=== PATIENT | female | born 1995 | race Caucasian/White ===

== ENCOUNTER 2020-02-13 20:30 | Emergency (ER) | payer OTHER ==
[2020-02-13] MEDS ORDERED: ACETAMINOPHEN 325 MG TABLET PO ONE (20:45)
--- NOTE | 2020-02-13 20:54 | ER Document Report ---
ED Extremity Problem, Lower - General Chief Complaint: Knee Injury Stated Complaint: FALL/KNEE PAIN 37WKS PREG Time Seen by Provider: 02/13/20 20:38 Primary Care Provider: TANIA GOULD DO [Primary Care Provider] - Follow up as needed Mode of Arrival: Wheelchair Information source: Patient Notes: 24-year-old female presented to ED for complaint in her left knee. She states around 1930 she was pushing an ottoman up to the couch when her left knee locked up. She states she then fell landing on her knee and now her knee is sore. She states her abdomen is feeling very tight more so than normal and she is 37 weeks 4 days . She states that she was seen last week and her amniotic fluid was 15 and 3 days ago her amniotic fluid was up to 26 in 1 week's time. She states she did go in today for nonstress test at 830 this morning but her abdomen feels much tighter now than then. She is supposed to get seen again next week. Patient is able to walk with some discomfort to the left knee. She has full range of motion to the knee she does have some mild tenderness to the medial side of the left knee. There is no laxity to the joint. There is no eff usion to the joint. Constitutional: Negative for fever. HENT: Negative for sore throat. Eyes: Negative for visual changes. Cardiovascular: Negative for chest pain. Respiratory: Negative for shortness of breath. Gastrointestinal: Negative for abdominal pain, vomiting or diarrhea. Genitourinary: Negative for dysuria. Musculoskeletal: Negative for back pain. Skin: Negative for rash. Neurological: Negative for headaches, weakness or numbness. 10 point ROS negative except as marked above and in HPI. PHYSICAL EXAMINATION: GENERAL: 37 weeks 4 days gestation . She states her abdomen is feeling very tight. After examining the knee apply an Brayan wrap and given her Tylenol we are sending her up to labor and delivery to have a labor check.. HEAD: Atraumatic, normocephalic. EYES: Pupils equal round extraocular movements intact, conjunctiva are normal. ENT: Nares patent NECK: Normal range of motion LUNGS: No respiratory distress Musculoskeletal: Normal range of motion tenderness to the medial aspect of the left knee. Has full range of motion is able to walk NEUROLOGICAL: Normal speech, normal gait. PSYCH: Normal mood, normal affect. SKIN: Warm, Dry, normal turgor, no rashes or lesions noted. - HPI Patient complains to provider of: Injury, Pain Location: Knee Occurred: This evening - 1929 Where: Neighbor's Onset/Duration: Better Quality of pain: Other - Sore left knee, her abdomen is much tighter than it normal. Severity: Moderate Pain Level: 2 Context: Fell Recent injury: Possibly Associated symptoms: Painful ambulation Exacerbated by: Walking - Related Data Allergies/Adverse Reactions: cefaclor [From Ceclor] Allergy (Verified 02/13/20 20:37) Past Medical History - General Information source: Patient - Social History Smoking Status: Never Smoker Frequency of alcohol use: None Drug Abuse: None Lives with: Family Family History: Reviewed & Not Pertinent Patient has suicidal ideation: No Patient has homicidal ideation: No - Past Medical History Cardiac Medical History: Reports: None Pulmonary Medical History: Reports: None EENT Medical History: Reports: None Neurological Medical History: Reports: None Endocrine Medical History: Reports: None Renal/ Medical History: Reports: None Malignancy Medical History: Reports: None GI Medical History: Reports: None Musculoskeletal Medical History: Reports Hx Musculoskeletal Trauma - Dislocated right kneecap fractured right clavicle Skin Medical History: Reports None Psychiatric Medical History: Reports: None Traumatic Medical History: Reports: Hx Fractures - Clavicle fracture Infectious Medical History: Reports: None Surgical Hx: Negative Past Surgical History: Reports: None - Immunizations Immunizations up to date: Yes Hx Diphtheria, Pertussis, Tetanus Vaccination: Yes Physical Exam - Vital signs Vitals: Temp Pulse Resp BP Pulse Ox 97.7 F 99 21 H 121/86 H 99 02/13/20 20:52 02/13/20 20:52 02/13/20 20:52 02/13/20 20:52 02/13/20 20:52 Course - Vital Signs Vital signs: Temp Pulse Resp BP Pulse Ox 97.7 F 99 21 H 121/86 H 99 02/13/20 20:52 02/13/20 20:52 02/13/20 20:52 02/13/20 20:52 02/13/20 20:52 Procedures - Immobilization Left Time completed: 20:50 Pre-Proc Neuro Vasc Exam: Normal Immobilizer type: Brayan wrap Performed by: PCT Post-Proc Neuro Vasc Exam: Normal Alignment checked and good: Yes Discharge - Discharge Clinical Impression: 37 weeks preg abdomen tight Fall Qualifiers: Encounter type: initial encounter Qualified Code(s): W19.XXXA - Unspecified fall, initial encounter Left knee pain Qualifiers: Chronicity: acute Qualified Code(s): M25.562 - Pain in left knee Condition: Stable Disposition: HOME, SELF-CARE Additional Instructions: You were seen today for pain in your left knee. You state you were pushing her arm into the couch this evening when your left knee locked up and then you fell and your left knee is sore. States she also or 37 weeks and 4 days and your abdomen is feeling much tighter than it normally feels. He states she was seen a week ago and your amniotic fluid was at 15 and 3 days ago it was at 26 in 1 week. He states he did go this morning for a nonstress test at the [facility] at 830 this morning and everything was okay but her abdomen is feeling different now than it was. He states you are feel the baby move. Acetaminophen Acetaminophen may be taken for pain relief or fever control. It's much safer than aspirin, offering a wider range of "safe" dosages. It is safe during . Some brand names are Tylenol, Panadol, Datril, Anacin 3, Tempra, and Liquiprin. Acetaminophen can be repeated every four hours. The following are maximum recommended dosages: WEIGHT Dose Drops Elixir Chewable(80mg) (LBS.) drprs=droppers tsp=teaspoon 6 40 mg .4 ml (1/2) 6-11 80 mg .8 ml (full) 1/2 tsp 1 tab 12-16 120 mg 1 1/2 drprs 3/4 tsp 1 1/2 tabs 17-23 160 mg 2 drprs 1 tsp 2 tabs 24-30 240 mg 3 drprs 1 1/2 tsp 3 tabs 30-35 320 mg 2 tsp 4 tabs 36-41 360 mg 2 1/4 tsp 4 1/2 tabs 42-47 400 mg 2 1/2 tsp 5 tabs 48-53 480 mg 3 tsp 6 tabs 54-59 520 mg 3 1/4 tsp 6 1/2 tabs 60-64 560 mg 3 1/2 tsp 7 tabs 65-70 600 mg 3 3/4 tsp 7 1/2 tabs 71-76 640 mg 4 tsp 8 tabs 77-82 720 mg 4 1/2 tsp 9 tabs 83-88 800 mg 5 tsp 10 tabs >89 pounds or adults 650 mg to 900 mg Acetaminophen can be repeated every four hours. Maximum daily dose not to exceed 4000 mg. These maximum recommended dosages are slightly higher than the dosages written on the product container, but these dosages are very safe and well below the toxic dosage for acetaminophen. Brayan Wrap A compression dressing (brayan wrap) has been placed. This helps hold the area still. It limits swelling and internal bleeding. The wrap should be comfortably snug -- not tight. You should feel a sense of pressure, but not severe pain under the wrap. Unless the physician tells you otherwise, you can adjust the wrap for comfort. If the wrap causes symptoms suggesting it's too tight -- uncomfortable pressure, swelling or discoloration beyond the wrap, numbness, or severe pain -- you must loosen the wrap. If these symptoms don't resolve promptly, return for re-evaluation. FOLLOW-UP CARE: If you have been referred to a physician for follow-up care, call the physicians office for an appointment as you were instructed or within the next two days. If you experience worsening or a significant change in your symptoms, notify the physician immediately or return to the Emergency Department at any time for re-evaluation. We will treat you with an Brayan wrap and Tylenol for the knee pain and then you are going straight up to labor and delivery to have a labor check for this tight feeling in your abdomen after falling. Referrals: TANIA GOULD, DO [Primary Care Provider] - Follow up as needed
[2020-02-13 21:02] VITALS: BP 121/86
== END 2020-02-13 21:01 | disposition home or self-care (01) ==
LOC: ER 20:30
DX: O26.893 Other specified pregnancy related conditions, third trimester (principal); M25.562 Pain in left knee; W18.30XA Fall on same level, unspecified, initial encounter; Y92.009 Unspecified place in unspecified non-institutional (private) residence as the place of occurrence of the external cause; Z3A.37 37 weeks gestation of pregnancy
CPT/HCPCS: 99283

== ENCOUNTER 2020-02-13 21:09 | Outpatient (CLI) | payer OTHER ==
[2020-02-13 22:37] LABS: APPEARANCE,URINE CLEAR; BILIRUBIN,URINE NEGATIVE (NEGATIVE); COLOR,URINE STRAW; GLUCOSE, URINE NEGATIVE (NEGATIVE); KETONES,URINE NEGATIVE (NEGATIVE); LEUKOCYTE ESTERASE,URINE NEGATIVE (NEGATIVE); NITRITE,URINE NEGATIVE (NEGATIVE); PROTEIN,URINE NEGATIVE (NEGATIVE); URINE SPECIFIC GRAVITY 1.004; UROBILINOGEN,URINE NEGATIVE mg/dL (<2.0)
[2020-02-13 22:58] LABS: URINE AMPHETAMINES SCREEN NEGATIVE; URINE BARBITURATES SCREEN NEGATIVE; URINE BENZODIAZEPINES SCREEN NEGATIVE; URINE COCAINE SCREEN NEGATIVE; URINE MARIJUANA (THC) SCREEN NEGATIVE; URINE METHADONE SCREEN NEGATIVE; URINE PHENCYCLIDINE SCREEN NEGATIVE
[2020-02-13 23:29] LABS: FIBRINOGEN 459 mg/dL (209-497); INTERNATIONAL RATION (INR) 0.93; PARTIAL THROMBOPLASTIN TIME 26.1 SEC (23.5-35.8); PROTHROMBIN TIME 12.7 SEC (11.4-15.4)
[2020-02-13 23:38] LABS: ABSOLUTE EOSINOPHILS # (AUTO) 0.2 10^3/uL (0.0-0.6); ABSOLUTE LYMPHOCYTES (AUTO) 1.9 10^3/uL (0.5-4.7); ABSOLUTE MONOCYTES (AUTO) 0.7 10^3/uL (0.1-1.4); ABSOLUTE NEUT (AUTO) 6.1 10^3/uL (1.7-8.2); BASOPHILS % (AUTO) 0.2 % (0-2); EOSINOPHILS % (AUTO) 2.2 % (0-6); HEMATOCRIT 30.6 % (36.0-47.0); HEMOGLOBIN 10.6 g/dL (12.0-15.5); LYMPHOCYTES % (AUTO) 21.4 % (13-45); MEAN CORPUSCULAR HEMOGLOBIN 28.2 pg (27.0-33.4); MEAN CORPUSCULAR HGB CONC 34.6 g/dL (32.0-36.0); MEAN CORPUSCULAR VOLUME 82 fl (80-97); MONOCYTES % (AUTO) 7.4 % (3-13); PLATELET COUNT 144 10^3/uL (150-450); RED BLOOD COUNT 3.75 10^6/uL (3.72-5.28); RED CELL DISTRIBUTION WIDTH 14.1 % (11.5-14.0); SEGMENTED NEUTROPHILS % (AUTO) 68.8 % (42-78); TOTAL CELLS COUNTED % (AUTO) 100 %; WHITE BLOOD COUNT 8.9 10^3/uL (4.0-10.5)
--- NOTE | 2020-02-13 23:44 | RADIOLOGY REPORT (SQ) ---
EXAM DESCRIPTION: US LIMITED COMPLETED DATE/TME: 02/13/2020 00:00 CLINICAL HISTORY: 24 years, Female, fall. r/o abruption and assure wellbeing COMPARISON: None. TECHNIQUE: LIMITATIONS: None. FINDINGS: There is a live IUP in vertex presentation. cardiac activity was measured at 133 bpm. The placenta is posterior in location, with no evidence of abruption or previa. The amniotic fluid index is 25 cm, at the upper limits of normal. The cervix measures 3.2 cm in length and is closed. IMPRESSION: Unremarkable IUP. copyright 2010 [facility] [employer]- All Rights Reserved
[2020-02-14 03:07] LABS: RHOGAM DOSE INDICATED 0 VIAL(S)
== END 2020-02-13 23:58 | disposition home or self-care (01) ==
LOC: LC 21:09
PROVIDERS: ATTEND Student in an Organized Health Care Education/Training Program
DX: O47.1 False labor at or after 37 completed weeks of gestation (principal); Z3A.37 37 weeks gestation of pregnancy; Z88.1 Allergy status to other antibiotic agents; Z91.81 History of falling
CPT/HCPCS: 36415; 59025; 76815; 80307; 81005; 85025; 85384; 85460; 85610; 85730; 86900; 86901

== ENCOUNTER 2020-02-25 08:33 | Inpatient (IN) | payer OTHER ==
[2020-02-25] MEDS ORDERED: OXYTOCIN/0.9 % SODIUM CHLORIDE 30 UNIT/500 ML RTUINJ IV PRN ×2 (08:55→15:37)
[2020-02-25] MEDS ORDERED: RINGERS SOLUTION,LACTATED 1,000 ML IV ONE (08:55)
[2020-02-25] MEDS ORDERED: OXYTOCIN 10 UNIT/ML VIAL ONE (09:13)
[2020-02-25] MEDS ORDERED: LIDOCAINE 1% INJ-PF (10 MG/ML) 30 ML SDV ONE (09:13)
[2020-02-25] MEDS ORDERED: OXYTOCIN/0.9 % SODIUM CHLORIDE 30 UNIT/500 ML RTUINJ ONE (09:13)
[2020-02-25] MEDS ORDERED: MISOPROSTOL 0.2 MG TABLET ONE (09:13)
[2020-02-25 09:15] LABS: ABSOLUTE EOSINOPHILS # (AUTO) 0.2 10^3/uL (0.0-0.6); ABSOLUTE LYMPHOCYTES (AUTO) 1.7 10^3/uL (0.5-4.7); ABSOLUTE MONOCYTES (AUTO) 0.5 10^3/uL (0.1-1.4); ABSOLUTE NEUT (AUTO) 4.8 10^3/uL (1.7-8.2); BASOPHILS % (AUTO) 0.4 % (0-2); EOSINOPHILS % (AUTO) 2.6 % (0-6); HEMATOCRIT 31.9 % (36.0-47.0); LYMPHOCYTES % (AUTO) 23.5 % (13-45); MEAN CORPUSCULAR HEMOGLOBIN 27.6 pg (27.0-33.4); MEAN CORPUSCULAR HGB CONC 34.6 g/dL (32.0-36.0); MEAN CORPUSCULAR VOLUME 80 fl (80-97); MONOCYTES % (AUTO) 7.4 % (3-13); PLATELET COUNT 117 10^3/uL (150-450); RED CELL DISTRIBUTION WIDTH 14.2 % (11.5-14.0); SEGMENTED NEUTROPHILS % (AUTO) 66.1 % (42-78); TOTAL CELLS COUNTED % (AUTO) 100 %; WHITE BLOOD COUNT 7.3 10^3/uL (4.0-10.5)
[2020-02-25] MEDS: RINGERS SOLUTION,LACTATED 1,000 ML IV PRN ×2 (09:19→11:52)
[2020-02-25 10:09] LABS: URINE AMPHETAMINES SCREEN NEGATIVE; URINE BARBITURATES SCREEN NEGATIVE; URINE BENZODIAZEPINES SCREEN NEGATIVE; URINE COCAINE SCREEN NEGATIVE; URINE MARIJUANA (THC) SCREEN NEGATIVE; URINE METHADONE SCREEN NEGATIVE; URINE PHENCYCLIDINE SCREEN NEGATIVE
[2020-02-25] MEDS ORDERED: ACETAMINOPHEN 325 MG TABLET ONE (10:16)
[2020-02-25] MEDS ORDERED: ACETAMINOPHEN 325 MG TABLET PO PRN ×2 (10:17→15:37)
--- NOTE | 2020-02-25 10:17 | Admission Physical ---
Datetime Report Generated by CPN: 02/25/2020 10:17 CURRENT ADMISSION Hx Assessment: The History has been Updated Chief Complaint: Scheduled Induction of Labor Indication for Induction: Polyhydramnios Admit Impression : Term, Intrauterine Admit Plan: Admit to Unit; Initiate Labor Induction Protocol ALLERGIES Medication Allergies: No Medication Allergies: cefaclor (02/25/2020) Latex: No Latex Allergies OBSTETRICAL HISTORY EDC: 03/02/2020 00:00 : 4 Para: 2 Term: 2 : 0 SAB: 1 IAB: 0 Ectopic: 0 Livin Cesareans: 0 VBACs: 0 Multiple Births: 0 Gestational Diabetes: No Rh Sensitization: No Incompetent Cervix: No BETTINA: No Infertility: No ART Treatment: No Uterine Anomaly: No IUGR: No Hx Previous C/S: No Macrosomia: No Hx Loss/Stillborn: No PIH: Yes Hx : No Placenta Previa/Abruption: No Depression/PP Depression: No PTL/PROM: No Post Hemorrhage: No Current Procedures: Ultrasound; NST Obstetrical History Comments: g1 05/2015 SAB g2 - 08/20/16 38 weeks IOL GHTN g3 - 12/29/2018 40 weeks g4 - current +downs in 1st trimester, Neg NIPS at [facility], poly FRANCISCO J 27.93 SEE RECORDS Alcohol: No Marijuana : No Cocaine: No Other Illicit Drugs: No Cigarettes: Never Smoker. [id number] MEDICAL HISTORY Diabetes: No Blood Transfusion: No Pulmonary Disease (Asthma, TB): No Breast Disease: No Hypertension: No Manager Gaming Surgery: No Heart Disease: No Hosp/Surgery: Yes Autoimmune Disorder: No Anesthetic Complications: No Kidney Disease: No Abnormal Pap Smear: No Neuro/Epilepsy: No Psychiatric Disorders: No Other Medical Diseases: No Hepatitis/Liver Disease: No Significant Family History: No Varicosities/Phlebitis: No Trauma/Violence : No Thyroid Dysfunction: No Medical History Comments: childbirth INFECTIOUS HISTORY Gonorrhea: No Genital Herpes: No Chlamydia: No Tuberculosis: No Syphilis: No Hepatitis: No HIV/AIDS Exposure: No Rash or Viral Illness: No HPV: No PHYSICAL EXAM General: Normal Heart: Normal Abdomen: Normal Extremities: Normal DTRs: Normal Pelvic Type: Adequate Physical Exam Comments: pelvis proven to 7lbs Vital Signs: Reviewed; Within Normal Limits VAGINAL EXAM Dilatation: 3 Effacement: 60 Station: -1 Contraction Comments: irregular MEMBRANES Membranes: Intact FETUS A EGA: 39.1 Monitoring: External US FHR Category: Category I Presentation: Vertex Admit Comment: 24yo at 39wga into L_D for IOL secondary to polyhydramnios. Pt is A pos, Rubella non-immune, GBS negative. also complicated by anemia and positive down syndrome screen with negative maternity. Plan is pitocin and AROM with FSE. Dr dwyer is the OB continuing education director today and aware of pt status at this time PLANS FOR LABOR AND DELIVERY Labor and Delivery: None Pain Management: Epidural Feeding Preference: Formula Benefit of Breast Feed Discussed: Yes Circumcision: Yes INFORMED CONSENT Assignment: Diamond Dwyer MD Signature: with User ID: [email or web address] : with User ID: [email or web address]
[2020-02-25] MEDS ORDERED: ROPIVACAINE HCL 0.2% INJ/PF (2 MG/ML) 20 ML SDV ONE (11:45)
[2020-02-25] MEDS ORDERED: FENTANYL/BUPIVACAINE/NS/PF 300 MCG/150 ML RTUINJ EPI ONE (11:45)
[2020-02-25] MEDS ORDERED: EPHEDRINE SULFATE INJ 50 MG/1 ML AMPULE ONE (11:45)
--- NOTE | 2020-02-25 12:55 | L&D Progress Notes ---
PROGRESS NOTES Datetime Report Generated by CPN: 02/25/2020 12:54 PROGRESS NOTE Impression Other: IUP @ 39w1d- IOL Procedures: Artificial ROM; Sterile Vag Exam Plan: Continue Present Management; Induction Informed Consent Obtained: Vaginal Delivery; Induction of Labor; Risks, Benefits and Alternatives Discussed Vital Signs : Reviewed Comment: S: comfortable, feeling some pressure with contractions but no pain, desires an epidural for pain relief at some point O:VSS, cat I tracing, pit @ 6mu/min, cervix and contractions as stated A: IUP @ 39w1d IOL secondary to polyhydramnious AROM- Large amount of clear fluid, tolerated well by both baby and patient P: continue present plan with pitocin, anticipate delivery, epidural prn VAGINAL EXAM Dilatation: 3 Effacement: 60 Station: -1 Contractions: 2-4 LAST VAGINAL EXAM-NURSING Nursing Exam Dilitation: 4.0 Nursing Exam Effacement: 80 Nursing Exam Station: 0 MEMBRANES Membranes: Ruptured Amniotic Fluid Color: Clear FETUS A Monitoring: External US Decelerations: None FHR Category: Category I Presentation: Vertex SIGNATURE SIGNATURE: [id number];[id number];13,[id number] Assignment: Diamond Dwyer MD Signature: with User ID: [email or web address] : with User ID: [email or web address]
[2020-02-25] MEDS ORDERED: PROMETHAZINE HCL 25 MG SUPP.RECT PR PRN (15:37)
[2020-02-25] MEDS ORDERED: BENZOCAINE/MENTHOL AEROSOL SPRAY 56 ML TOP PRN (15:37)
[2020-02-25] MEDS ORDERED: MEASLES,MUMPS&RUBELLA VACC/PF 0.5 ML VIAL SUBCUT PRN (15:37)
[2020-02-25] MEDS ORDERED: PROMETHAZINE HCL INJ 25 MG/1 ML VIAL IV PRN (15:37)
[2020-02-25] MEDS ORDERED: GLYCERIN/WITCH HAZEL LEAF 1 EACH MED..WIPE TP PRN (15:37)
[2020-02-25] MEDS ORDERED: NA PHOS,M-B/NA PHOS,DI-BA (ADULT) 133 ML ENEMA PR PRN (15:37)
[2020-02-25] MEDS ORDERED: PSEUDOEPHEDRINE HCL 30 MG TABLET PO PRN (15:37)
[2020-02-25] MEDS ORDERED: MAGNESIUM HYDROXIDE SUSP 30 ML UDCUP PO PRN (15:37)
[2020-02-25] MEDS ORDERED: DIPH/PERTUSS(ACELL)/TETANUS VAC/PF 0.5 ML SYR (>=10YO) IM PRN (15:37)
[2020-02-25] MEDS ORDERED: DIPHENHYDRAMINE HCL 25 MG CAPSULE PO PRN (15:37)
[2020-02-25] MEDS ORDERED: DIBUCAINE 1% OINTMENT 28 GM TP PRN (15:37)
[2020-02-25] MEDS ORDERED: PROMETHAZINE HCL 25 MG TABLET PO PRN (15:37)
--- NOTE | 2020-02-25 15:44 | Warning Signs in Babies ---
VOD Warning Signs Datetime Report Generated by N: 02/25/2020 15:43 VOD#608 -Warning Signs in Babies: Viewed with Parent(s)/Family (02/25/2020 15:30:August ESPERANZA Artis)
[2020-02-25] MEDS ORDERED: MISOPROSTOL 0.2 MG TABLET PR ONE (16:43)
[2020-02-25] MEDS ORDERED: IBUPROFEN 800 MG TABLET ONE (16:50)
[2020-02-25] MEDS: IBUPROFEN 800 MG TABLET PO SCH ×2 (16:51→21:29)
[2020-02-25] MEDS: FERROUS SULFATE 325 MG TABLET PO SCH (18:16)
[2020-02-25] MEDS: DOCUSATE SODIUM 100 MG CAPSULE PO SCH (18:16)
--- NOTE | 2020-02-25 18:57 | Delivery Summary ---
Del Sum A-C Datetime Report Generated by CPN: 02/25/2020 18:56 DELIVERY PERSONNEL DELIVERY PERSONNEL: [id number] Delivery Doctor:: Ema Dupont CNM Nurse Business Continuity Specialist Certified:: Ema Dupont CNM Labor and Delivery Nurse:: Koir Artis RNtreasury agent Nurse:: PALOMO Moreno Nursery Nurse:: ESPERANZA Chandler/PRE K LEAD TEACHER: Sona Dominguez CNA II MATERNAL INFORMATION Delivery Anesthesia: Epidural Medications After Delivery: Pitocin 30 Units in 500ml NS/D5W Delivery QBL: 150 Maternal Complications: None Provider Comments: pt progressed to c/c/1 with urge to push, began pushing and quickly delivered a viable baby boy in COLEMAN position. Baby delivered thru nuchal x1 and foot cord also noted. Baby placed on maternal abdomen and cord allowed to stop pulsating then clamped x2 and cut by FOB (3vc noted). Nursery nurse in room and took baby to warmer to further evaluation. Placenta delivered spontaneously intact, fundus firm @ u-3, bleeding stable. Vaginal and perineal inspection revealed no lacerations. Mother and baby remain in room and stable at this time. LABOR SUMMARY EDC: 03/02/2020 00:00 No. Babies in Womb: 1 Attempted: No Labor Anesthesia: Epidural LABOR INFORMATION Reason for Induction: Polyhydramnios Onset of Labor: 02/25/2020 10:32 Complete Dilatation: 02/25/2020 14:50 Oxytocin: Induction Group B Beta Strep: negative Antibiotics # of Doses: n/a Name of Antibiotic Given: n/a Steroids Given: None Reason Steroids Not Administered: Not Applicable MEMBRANES Membranes Rupture Method: Artificial Rupture of Membranes: 02/25/2020 10:32 Length of Rupture (hr): 4.57 Amniotic Fluid Color: Clear Amniotic Fluid Amount: Large Amniotic Fluid Odor: Normal STAGES OF LABOR Stage 1 hr: 4 Stage 1 min: 18 Stage 2 hr: 0 Stage 2 min: 16 Stage 3 hr: 0 Stage 3 min: 5 Total Time in Labor hr: 4 Total Time in Labor min: 39 VAGINAL DELIVERY Episiotomy: None Laceration #1: None Laceration Extension #1: N/A Other Laceration: n/a Laceration Repair: Not Applicable Laceration Repair Note: n/a Sponge Count Correct: N/A Sharps Count Correct: N/A CSECTION DELIVERY Primary Indication: N/A Secondary Indication: N/A CSection Incidence: N/A Labor: N/A Elective: N/A CSection Incision: N/A BABY A INFORMATION Delivery Date/Time: 02/25/2020 15:06 Method of Delivery: Vaginal Nurse Controlled Delivery: No Born in Route : No : N/A Forceps: N/A Vacuum Extraction: N/A Shoulder Dystocia : No PRESENTATION/POSITION BABY A Presentation: Cephalic Cephalic Presentation: Vertex Vertex Position: Left Occipital Posterior Breech Presentation: N/A PLACENTA INFORMATION BABY A Placenta Delivery Time : 02/25/2020 15:11 Placenta Method of Delivery: Spontaneous Placenta Status: Delivered SCORES BABY A Heart Rate 1 min: >100 bpm Resp Effort 1 min: Slow, Irregular Reflex Irritability 1 min: Cough or Sneeze or Pulls Away Muscle Tone 1 min: Active Motion Color 1 min: Blue/Pale Resuscitation Effort 1 min: Tactile Stimulation SCORE 1 MIN: 7 Heart Rate 5 min: >100 bpm Resp Effort 5 min: Good Cry Reflex Irritability 5 min: Cough or Sneeze or Pulls Away Muscle Tone 5 min: Some Flexion of Extremities Color 5 min: Body Blevins, Extremities Blue Resuscitation Effort 5 min: Tactile Stimulation SCORE 5 MIN: 8 INFANT INFORMATION BABY A Gestational Age at Delivery: 39.1 Gestational Status: Full Term- 39- 40.6 Weeks Outcome : Liveborn Condition : Stable Sex: Male IDENTIFICATION BABY A Verification Date/Time: 02/25/2020 16:31 ID Band Number: [id number] Mother's Name Verified: Yes Infant RN Verifying : ESPERANZA Kirkland Additional Verifying Personnel: CMegan Bryant, RN WEIGHT/LENGTH BABY A Birthweight (gm): 3365 Weight (lb): 7 Weight (oz): 7 Length (in): 21.00 Infant Length (cm): 53.34 CORD INFORMATION BABY A No. Cord Vessels: 3 Nuchal Cord : Around Neck x1, Loose Nuchal Cord- Other: foot cord Cord Blood Taken: N/A Suction: Mouth; Nose ASSESSMENT BABY A Infant Complications: None Physical Findings at Delivery: Within Normal Limits Physical Findings- Other: see nursery record for initial assessment Skin to Skin: Yes Splunk Architect/ALS Called : No Infant Care By: H Trevino RN Transferred To: Remains with Mother BABY B INFORMATION : N/A SIGNATURES Assignment: Diamond Dwyer MD Signature: with User ID: [email or web address] : with User ID: [email or web address]
--- NOTE | 2020-02-25 18:57 | Birth Certificate Data ---
Cert Data Datetime Report Generated by CPN: 02/25/2020 18:56 CERTIFICATE DATA 47a. Care: Yes (02/13/2020 21:02:Kori Artis RN) 47b. Date of First Visit: 08/06/2019 00:00 (02/13/2020 21:02:Dorothy Smith RN) 47c. Date of Last Visit: 02/23/2020 00:00 (02/13/2020 21:02:Kori Artis RN) 47d. Number of Visits: 12 (02/13/2020 21:02:Kori Artis RN) 48a. Number of Prev Live Births: 2 (02/13/2020 21:02:Dorothy Smith RN) 48b. Now Livin (02/13/2020 21:02:Dorothy Smith RN) 48c. Live Births Now : 0 (02/13/2020 21:02:QS system process) 48d. Date of Last Live : 12/29/2018 00:00 (02/13/2020 21:02:Dorothy Smith RN) 48e. Losses: 1 (02/13/2020 21:02:Dorothy Smith RN) 48f. Date of Last Preg Loss: 05/07/2015 00:00 (02/13/2020 21:02:Dorothy Smith RN) RISK FACTORS IN THIS 49a. Diabetes: No (02/13/2020 21:02:Dorothy Smith RN) 49b. Hypertension: No (02/13/2020 21:02:Dorothy Smith RN) Type of Hypertension: Gestational (PIH, Pre-eclampsia) (02/13/2020 21:02:Dorothy Smith RN) 49c. Previous Births: 0 (02/13/2020 21:02:Kori Artis RN) 49d. Stillborns: No (02/13/2020 21:02:Dorothy Smith RN) 49d. IUGR: No (02/13/2020 21:02:Dorothy Smith RN) 49e. Infertility Treatment: No (02/13/2020 21:02:Dorothy Smith RN) 49f. Previous Cesareans: 0 (02/13/2020 21:02:Kori Artis RN) Mother's Height 50b. Height Inches: 65 (02/13/2020 23:30:QS system process) Mother's Weight 51a. Pre- Weight (lbs): 138 (02/13/2020 21:02:Dorothy Smith RN) 51b. Weight at Delivery (lbs): 154 (02/25/2020 17:49:QS system process) 52. Dt Last Normal Menses Began: 05/27/2019 00:00 (02/13/2020 21:02:Kori Artis RN) Infections Present/Treated 53a. Gonorrhea: No (02/13/2020 21:02:Dorothy Smith RN) Results this Hospital Visit : Negative (02/13/2020 21:02:Dorothy Smith RN) 53b. Syphilis: No (02/13/2020 21:02:Dorothy Smith RN) 53c. Chlamydia: No (02/13/2020 21:02:Dorothy Smith RN) Results this Hospital Visit: Negative (02/13/2020 21:02:Dorothy Smith RN) 53d. Hepatitis B: No (02/13/2020 21:02:Dorothy Smith RN) Results this Hospital Visit: Negative (02/13/2020 21:02:Dorothy Smith RN) 53e. Hepatitis C: Negative (02/13/2020 21:02:Dorothy Smith RN) 53h. Mother Tested for HBsAG: Yes (02/13/2020 21:02:Dorothy Smith RN) 53i. Date Tested: 08/14/2019 00:00 (02/13/2020 21:02:Dorothy Smith RN) 53j. Test Result: Negative (02/13/2020 21:02:Dorothy Smith RN) Obstetric Procedures 54a, b, c. Obstetric Procedures: Ultrasound; NST (02/13/2020 21:02:Dorothy Smith RN) Cigarette Smoking Cigarette Smoking: Never Smoker. [id number] (02/13/2020 21:02:Dorothy Smith RN) 55a. 3 Months Before Preg - Ci (02/13/2020 21:02:Kori Artis RN) 55b. 1st Trimester of Preg- Ci (02/13/2020 21:02:Kori Artis RN) 55c. 2nd Trimester of Preg- Ci (02/13/2020 21:02:Kori Artis RN) 55d. 3rd Trimester of Preg- Ci (02/13/2020 21:02:Kori Artis RN) Onset of Labor 56a. PROM >12 Hrs: 4.57 (02/13/2020 21:02:QS system process) 56b. Precipitous Labor <3 Hrs: 4 (02/13/2020 21:02:QS system process) 56c. Prolonged Labor > 20 Hrs: 4 (02/13/2020 21:02:QS system process) 57a. Induction of Labor: Induction (02/13/2020 21:02:Kori Artis RN) 57c. Non-Vertex Presentation A: Vertex (02/13/2020 21:02:Kori Artis RN) 57d. Steroids - Lung Mat: None (02/13/2020 21:02:Kori Artis RN) 57d. Steroids - Lung Mat: Not Applicable (02/13/2020 21:02:Kori Artis RN) 57f. Mat Chorio or Temp >100.4: 99.1 (02/13/2020 21:02:Kori Artis RN) 57g. Moderate/Heavy Meconium: Clear (02/25/2020 10:32:Kori Artis RN) 57h. Intolerance of Labor: N/A (02/13/2020 21:02:Kori Artis RN) : N/A (02/13/2020 21:02:Kori Artis RN) 57i. Epidural/Spinal Anesthesia: Epidural (02/13/2020 21:02:Kori Artis RN) Method of Delivery 58a. Forceps - Unsuccessful A: N/A (02/13/2020 21:02:Kori Artis RN) 58b. Vacuum - Unsuccessful A: N/A (02/13/2020 21:02:Kori Artis RN) 58c. Presentation at 58c. Presentation at - A : Vertex (02/13/2020 21:02:Kori ESPERANZA Artis) 58c. Presentation at - A : [facility] 58c. Presentation at - A : Cephalic (02/13/2020 21:02:[facility] ) Final Route and Method of Del 58d. Baby A Route/Delivery: Vaginal (02/25/2020 15:06:Kori Steff ) 58e. Trial of Labor Attempted: No (02/13/2020 [facility] 58e. Trial of Labor Attempted A: N/A (02/13/2020 [facility] ) 58e. Trial of Labor Attempted B: N/A (02/13/2020 21:02:[facility] ) Maternal Morbidity 59b. 3rd or 4th Degree Lacs: None (02/13/2020 21:02:Kori Artis RN) 59b. 3rd or 4th Degree Lacs: n/a (02/13/2020 21:02:Emanaseem Dupont, CNM) Birthweight Baby A: 3365 (02/13/2020 21:02:Kori Artis RN) 60a. Pounds : 7 (02/13/2020 21:02:QS system process) 60b. Ounces: 7 (02/13/2020 21:02:QS system process) 61. GA at Delivery Baby A: 39.1 (02/13/2020 21:02:Kori Artis RN) : Full Term- 39- 40.6 Weeks (02/13/2020 21:02:QS system process) 62a. 5 Minute Baby A: 8 (02/13/2020 21:02:QS system process)
[2020-02-25] MEDS: FAMOTIDINE 20 MG TABLET PO SCH (21:29)
[2020-02-26] MEDS: IBUPROFEN 800 MG TABLET PO SCH ×3 (05:40→22:00)
[2020-02-26 07:10] LABS: HEMATOCRIT 28.9 % (36.0-47.0); HEMOGLOBIN 9.8 g/dL (12.0-15.5); MEAN CORPUSCULAR HEMOGLOBIN 27.6 pg (27.0-33.4); MEAN CORPUSCULAR HGB CONC 33.8 g/dL (32.0-36.0); MEAN CORPUSCULAR VOLUME 82 fl (80-97); RED BLOOD COUNT 3.55 10^6/uL (3.72-5.28); RED CELL DISTRIBUTION WIDTH 14.5 % (11.5-14.0); WHITE BLOOD COUNT 9.2 10^3/uL (4.0-10.5)
[2020-02-26 07:36] LABS: PLATELET COUNT 95 10^3/uL (150-450)
[2020-02-26] MEDS: FAMOTIDINE 20 MG TABLET PO SCH ×2 (09:44→22:00)
[2020-02-26] MEDS: FERROUS SULFATE 325 MG TABLET PO SCH ×2 (09:44→18:23)
[2020-02-26] MEDS: DOCUSATE SODIUM 100 MG CAPSULE PO SCH ×2 (09:44→18:23)
[2020-02-26] MEDS ORDERED: PRENATAL VITAMIN W DHA CAPSULE PO SCH (10:00)
[2020-02-26] MEDS ORDERED: SENNOSIDES/DOCUSATE 8.6-50 MG 1 EACH TABLET PO SCH (10:00)
--- NOTE | 2020-02-26 16:44 | PDOC PROGRESS REPORT ---
Subjective-OB Progress Note for:: 02/26/20 Subjective: reports bleeding slowing, pain controlled with current meds. denies needs Physical Exam (OB) Vital Signs: Temp Pulse Resp BP Pulse Ox 98.3 F 60 16 123/66 99 02/26/20 08:58 02/26/20 08:00 02/26/20 08:00 02/26/20 08:00 02/26/20 08:00 Intake & Output 02/25/20 02/26/20 02/27/20 06:59 06:59 06:59 Intake Total 2010 Balance 2011 Weight 69.8 kg - Maternal Morbidity 59. Maternal Morbidity (serious complications experinced by the mother associated with labor and delivery: None of the above - Abdomen Hernia Present: No Fundal Description: Firm Fundal Height: u/u - u/2 - Abdominal Distension: No distension Tenderness: Nontender - Extremities Lower extremities: Domenic's sign - neg Calf: Normal, Nontender Objective-Diagnostic Laboratory: 02/26/20 06:38 02/26/20 06:38 WBC 9.2 RBC 3.55 L Hgb 9.8 L Hct 28.9 L MCV 82 MCH 27.6 MCHC 33.8 RDW 14.5 H Plt Count 95 L Assessment and Plan(PN) - Time Spent with Patient Time with patient: Less than 15 minutes Medications reviewed and adjusted accordingly: Yes - Disposition Anticipated Discharge Disposition: Home, Self Care Anticipated Discharge Timeframe: within 24 hours
--- NOTE | 2020-02-26 18:23 | PDOC DISCHARGE SUMMARY ---
Impression - Admit/DC Date/PCP Admission Date/Primary Care Provider: 02/25/20 08:33 LISA POTTER MD Discharge Date: 02/26/20 - Discharge Diagnosis (1) Encounter for induction of labor Is this a current diagnosis for this admission?: Yes (2) Vaginal delivery Is this a current diagnosis for this admission?: Yes - Assessment Summary: pt delivered yesterday. 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 He was last in contact with them on Sunday. Will proceed with discharge and instruct patient to self quarantine per [facility] and CDC guidelines - Additional Information Resuscitation Status: Full Code Discharge Diet: As Tolerated Discharge Activity: Pelvic Rest, No tub bath Referrals: LISA POTTER MD [Primary Care Provider] - Prescriptions: Docusate Sodium [Colace 100 mg Capsule] 100 mg PO BID #60 capsule Ibuprofen [Motrin 800 mg Tablet] 800 mg PO Q8 #60 tablet Home Medications: Ascorbic Acid [Vitamin C 500 mg Tablet] 500 mg PO DAILY 02/13/20 Ferrous Sulfate [Ferosul] 325 mg PO BID 02/13/20 Vits96/Iron Fum/Folic [ Tablet] 1 each PO DAILY 02/13/20 Docusate Sodium [Colace 100 mg Capsule] 100 mg PO BID #60 capsule 02/26/20 Ibuprofen [Motrin 800 mg Tablet] 800 mg PO Q8 #60 tablet 02/26/20 History of Present Illiness History of Present Illness: DEACON MUNIZ is a 24 year old female Physical Exam - Physical Exam Vital Signs: Temp Pulse Resp BP Pulse Ox 98.3 F 60 16 123/66 99 02/26/20 08:58 02/26/20 08:00 02/26/20 08:00 02/26/20 08:00 02/26/20 08:00 Intake & Output 02/25/20 02/26/20 02/27/20 06:59 06:59 06:59 Intake Total 2010 Balance 2010 Weight 69.8 kg Results Laboratory Results: WBC 9.2 10^3/uL (4.0-10.5) 02/26/20 06:38 RBC 3.55 10^6/uL (3.72-5.28) L 02/26/20 06:38 Hgb 9.8 g/dL (12.0-15.5) L 02/26/20 06:38 Hct 28.9 % (36.0-47.0) L 02/26/20 06:38 MCV 82 fl (80-97) 02/26/20 06:38 MCH 27.6 pg (27.0-33.4) 02/26/20 06:38 MCHC 33.8 g/dL (32.0-36.0) 02/26/20 06:38 RDW 14.5 % (11.5-14.0) H 02/26/20 06:38 Plt Count 95 10^3/uL (150-450) L 02/26/20 06:38 Lymph % (Auto) 23.5 % (13-45) 02/25/20 08:56 [place]y % (Auto) 7.4 % (3-13) 02/25/20 08:56 Eos % (Auto) 2.6 % (0-6) 02/25/20 08:56 Baso % (Auto) 0.4 % (0-2) 02/25/20 08:56 Absolute Neuts (auto) 4.8 10^3/uL (1.7-8.2) 02/25/20 08:56 Absolute Lymphs (auto) 1.7 10^3/uL (0.5-4.7) 02/25/20 08:56 Absolute Monos (auto) 0.5 10^3/uL (0.1-1.4) 02/25/20 08:56 Absolute Eos (auto) 0.2 10^3/uL (0.0-0.6) 02/25/20 08:56 Absolute Basos (auto) 0.0 10^3/uL (0.0-0.2) 02/25/20 08:56 Seg Neutrophils % 66.1 % (42-78) 02/25/20 08:56 Urine Opiates Screen NEGATIVE 02/25/20 08:41 Urine Methadone Screen NEGATIVE 02/25/20 08:41 Ur Barbiturates Screen NEGATIVE 02/25/20 08:41 Ur Phencyclidine Scrn NEGATIVE 02/25/20 08:41 Ur Amphetamines Screen NEGATIVE 02/25/20 08:41 U Benzodiazepines Scrn NEGATIVE 02/25/20 08:41 Urine Cocaine Screen NEGATIVE 02/25/20 08:41 U Marijuana (THC) Screen NEGATIVE 02/25/20 08:41 RPR NONREACTIVE (NONREACTIVE) 02/25/20 08:56 Blood Type A POSITIVE 02/25/20 08:56 Antibody Screen NEGATIVE 02/25/20 08:56 Stroke Is this a Stroke Patient?: No Acute Heart Failure Is this a Heart Failure Patient?: No
[2020-02-26 21:27] VITALS: BP 123/66
== END 2020-02-26 22:10 | disposition home or self-care (01) | DRG 807 ==
LOC: LR 08:33 → 2S 17:30
PROVIDERS: ADMIT Obstetrics & Gynecology; ATTEND Obstetrics & Gynecology
PROC: 10E0XZZ Delivery of Products of Conception, External Approach (ICD-10-PCS; principal; 2020-02-25)
DX: O40.3XX0 Polyhydramnios, third trimester, not applicable or unspecified (principal); O69.81X0 Labor and delivery complicated by cord around neck, without compression, not applicable or unspecified; O99.02 Anemia complicating childbirth; Z37.0 Single live birth; D64.9 Anemia, unspecified; Z3A.39 39 weeks gestation of pregnancy
CPT/HCPCS: 1967; 36415; 80307; 85025; 85027; 86592; 86850; 86900; 86901; 94760; J2590; J2795; J3010; J3490